=== PATIENT | male | born 2000 | race Caucasian/White ===

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

== ENCOUNTER 2022-01-01 13:26 | Emergency (ER) | payer OTHER, SELFPAY ==
--- NOTE | ~2022-01-01 | XR_ITS ---
EXAMINATION: XR KNEE, RIGHT CLINICAL INFORMATION: Fall, pain COMPARISON: None TECHNIQUE: Four views of the right knee. FINDINGS: Negative for acute fracture or dislocation. Small effusion cannot be excluded. XR/XR knee RT 4V IMPRESSION: No acute fracture or dislocation. Small effusion cannot be excluded here.
[2022-01-01 13:41] VITALS: BP 111/69; PULSE 98; RESP 18; TEMP 37.3; O2SAT 97; BMI 20.5
--- NOTE | 2022-01-01 15:20 | ED_ITS ---
HPI - Extremity Injury (Lower) General Chief Complaint: Extremity Injury, Lower Stated Complaint: R knee pain Time Seen by Provider: 01/01/22 14:03 History of Present Illness HPI Narrative: Patient complains of right knee pain after an injury when he fell skateboarding and landed on his knee cap 2 days ago, after he fell on his knee cap the skateboard fell onto him hitting the outside of his right knee He denies any other injury He [facility] after the injury where they x-rayed it and said there was fluid on the knee but no evidence of any other injury He comes today as pain has not improve Related Data Allergies Allergy/AdvReac Type Severity Reaction Status Date / Time No Known Allergies Allergy Verified 07/02/20 21:55 Review of Systems Review of Systems: Positive for right knee pain Negatives no head injury no neck injury no headache no neck pain no loss of consciousness no back pain no numbness weakness or tingling no lacerations no other extremity injuries Yes all other systems are reviewed and are negative PMFSH Past Medical History Source: nursing notes reviewed Medical History ADHD Social History Social History Advance Directives: No Advance Directives Information Provided: No Physical Exam Vital Signs: Vital Signs: Last Vital Signs Temp 99.1 F 01/01/22 13:41 Pulse 98 01/01/22 13:41 Resp 18 01/01/22 13:41 BP 111/69 01/01/22 13:41 Pulse Ox 97 01/01/22 13:41 O2 Del Method 01/01/22 13:41 BMI result Body Mass Index 20.5 General appearance no acute distress Head is normocephalic atraumatic Neck is supple nontender The back full range of motion nontender Chest wall nontender Abdomen soft nontender Extremities the right knee extends to 180 he can do a straight leg lift, there is no ligamentous laxity, there is no significant swelling no redness no warmth, there are some minor abrasions over the knee cap, patient can ambulate with a limp Other extremities normal Course Course Course Narrative: Right knee x-ray did not show any fracture and patient with likely sprain or bruise knee will follow with orthopedics Discharge Plan Discharge Clinical Impression: Contusion of knee, right, Right knee sprain Patient Disposition: Home, Self-Care Additional Instructions: No broken bone was seen on the x-ray, there was a question of fluid but they were unsure Hopefully the pain and discomfort are from bruising from getting hit with a skateboard and falling onto her knee cap, but there is no way to tell at this point if there was a twisting injury as well So if pain continues after for 5 days and you are not able to go back to regular activity call Orthopedics for an appointment and they will check for possible ligament or cartilage injury Return any time any concerns Referrals: Feliz Bocanegra MD [Physician] - (Right knee sprain) Stand Alone Forms: Work/School Release Interventions: ED Discharge Assessment Last Done: 01/01/22 15:32 Discharge Date/Time: 01/01/22 15:33
== END 2022-01-01 15:33 | disposition home or self-care (01) ==
PROVIDERS: Emergency Provider Emergency Medicine
DX: S80.01XA Contusion of right knee, initial encounter (principal); S83.91XA Sprain of unspecified site of right knee, initial encounter; V00.131A Fall from skateboard, initial encounter; Y93.51 Activity, roller skating (inline) and skateboarding; Y92.414 Local residential or business street as the place of occurrence of the external cause; Y99.9 Unspecified external cause status
CPT/HCPCS: 73564; 99283

== ENCOUNTER 2022-03-08 13:42 | Emergency (ER) | payer OTHER, SELFPAY ==
--- NOTE | ~2022-03-08 | XR_ITS ---
EXAMINATION: RIGHT SHOULDER AND RIGHT KNEE CLINICAL INFORMATION: Pain. COMPARISON: None TECHNIQUE: Right knee 4 views. Right shoulder 3 views. FINDINGS: Right shoulder: There is no visible acute fracture, dislocation or subluxation seen. The soft tissues are normal. Right knee: The tricompartment joint space is maintained normal. No acute fracture, dislocation or bony erosive changes seen. The soft tissues are normal. XR/XR shoulder RT min 2V IMPRESSION: Unremarkable right shoulder. Unremarkable right knee exam.
--- NOTE | ~2022-03-08 | XR_ITS ---
EXAMINATION: RIGHT SHOULDER AND RIGHT KNEE CLINICAL INFORMATION: Pain. COMPARISON: None TECHNIQUE: Right knee 4 views. Right shoulder 3 views. FINDINGS: Right shoulder: There is no visible acute fracture, dislocation or subluxation seen. The soft tissues are normal. Right knee: The tricompartment joint space is maintained normal. No acute fracture, dislocation or bony erosive changes seen. The soft tissues are normal. XR/XR knee RT 4V IMPRESSION: Unremarkable right shoulder. Unremarkable right knee exam.
[2022-03-08 13:59] VITALS: BP 119/68; PULSE 81; RESP 17; TEMP 36.6; O2SAT 98; BMI 20.3
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
== END 2022-03-08 16:08 | disposition home or self-care (01) ==
PROVIDERS: Emergency Provider Student in an Organized Health Care Education/Training Program
DX: M25.511 Pain in right shoulder (principal); M25.561 Pain in right knee
CPT/HCPCS: 73030; 73564; 99282; 99283

== ENCOUNTER 2022-04-12 13:11 | Emergency (ER) | payer OTHER, SELFPAY ==
[2022-04-12 13:18] VITALS: BP 110/75; PULSE 100; RESP 18; TEMP 37.1; O2SAT 98; BMI 20.3
--- NOTE | 2022-04-12 13:18 | ED_ITS ---
HPI - Nausea/Vomiting/Diarrhea General Chief complaint: Abdominal Pain Stated complaint: Food poisoning Related Data Allergies Allergy/AdvReac Type Severity Reaction Status Date / Time No Known Allergies Allergy Verified 04/12/22 13:20 [facility] Past Medical History Medical History ADHD Social History Social History Advance Directives: No Advance Directives Information Provided: No Physical Exam Vital Signs: Vital Signs: Last Vital Signs Temp 98.8 F 04/12/22 13:18 Pulse 100 04/12/22 13:18 Resp 18 04/12/22 13:18 BP 110/75 04/12/22 13:18 Pulse Ox 98 04/12/22 13:18 O2 Del Method 04/12/22 13:18 BMI result Body Mass Index 20.3 Course Course Course Narrative: This is an RME: Additional HPI, ROS, PE not included below will be deferred to primary provider. Patient is a 21-year-old male presents to the emergency department for evaluation of N/V/D. Yesterday at 20:00 reports he cooked a few hamburgers at home. Awoke today at 06:00 with nausea, vomiting x8, diarrhea x5, reportedly large volume with each episode, without blood, and diffuse ABD pain. Unable to tolerate PO intake. Denies fevers, chills, symptoms, sick contacts. Plan: Viral testing, Ondansetron sublingual, labs. placed back in waiting room pending bed availability 15:41 - WBC 22.6 with left shift, will obtain CT of the abdomen and pelvis Medications Administered Discontinued Medications Generic Name Dose Route Start Last Admin Trade Name Freq PRN Reason Stop Dose Admin Ondansetron HCl 4 mg 04/12/22 13:20 04/12/22 13:25 Ondansetron Odt 4 Mg Tab.Rapdis TRANSLINGU 04/12/22 13:21 4 mg ONCE ONE Administration Medical Decision Making Lab Data 04/12/22 13:51 04/12/22 13:51 Labs: Lab Results 04/12/22 04/12/22 Range/Units 13:51 13:51 WBC 22.6 H (4.8-10.8) X10*3/uL RBC 5.40 (4.60-5.80) X10*6/uL Hgb 17.1 (14.0-18.0) g/dl Hct 47.8 (42.0-52.0) % MCV 88.5 (80.0-98.0) fL MCH 31.7 (27.0-33.0) pg MCHC 35.8 (31.0-36.0) g/dl RDW 12.3 (11.0-16.0) % Plt Count 321 (160-400) X10*3/uL MPV 11.1 (9.4-12.4) fL Immature Gran % (Auto) 0.4 (0.0-0.4) % Neut % (Auto) 90.3 H (45-73) % Lymph % (Auto) 4.2 L (20-40) % [place] % (Auto) 4.5 (2-11) % Eos % (Auto) 0.2 (0-4) % Baso % (Auto) 0.4 (0-2) % Lymph # (Auto) 0.9 L (1.2-4.9) X10*3/uL [place] # (Auto) 1.0 (0.1-1.2) X10*3/uL Eos # (Auto) 0.1 (0.0-0.4) X10*3/uL Baso # (Auto) 0.1 (0.0-0.2) X10*3/uL Abs Immat Gran (auto) 0.09 H (0.00-0.03) X10*3/uL Absolute Neuts (auto) 20.4 H (2.0-8.3) x10*3/uL Absolute Nucleated RBC 0.000 (0.0-0.012) X10*3/uL Nucleated RBC % (auto) 0.0 (0.0-0.2) /100WBC Smear Tech's Comments VERIFIED Sodium 143 (135-145) mmol/L Potassium 4.6 (3.3-5.1) mmol/L Chloride 106 (96-108) mmol/L Carbon Dioxide 25 (22-29) mmol/L Anion Gap 17 (12-20) BUN 12 (9-16) mg/dL Creatinine 1.18 (0.5-1.4) mg/dL Estim Creat Clear Calc 83.9 Estimated GFR > 60 Random Glucose 108 (60-115) mg/dL Calcium 10.1 (8.4-10.2) mg/dL Total Bilirubin 2.1 H (0.0-1.0) mg/dL AST 22 (5-37) U/L ALT 24 (0-40) U/L Alkaline Phosphatase 54 (39-117) U/L Total Protein 7.5 (6.5-8.0) g/dL Albumin 5.2 H (3.5-5.0) g/dL Lipase 15 (8-78) U/L Discharge Plan Discharge Clinical Impression: Abdominal pain Patient Disposition: Elopement Interventions: ED Discharge Assessment Last Done: 04/12/22 19:39 Discharge Date/Time: 04/12/22 19:40
[2022-04-12] MEDS: Ondansetron ODT 4 MG TAB.RAPDIS TRANSLINGU (13:25)
[2022-04-12 13:59] LABS: Basophils Absolute Auto 0.1 X10*3/uL (0.0-0.2); Basophils Percent Auto 0.4 % (0-2); Eosinophils Absolute Auto 0.1 X10*3/uL (0.0-0.4); Eosinophils Percent Auto 0.2 % (0-4); Hematocrit 47.8 % (42.0-52.0); Hemoglobin 17.1 g/dl (14.0-18.0); Imm Gran Abs Auto 0.09 X10*3/uL (0.00-0.03); Imm Gran Pct Auto 0.4 % (0.0-0.4); Lymphocytes Absolute Auto 0.9 X10*3/uL (1.2-4.9); Lymphocytes Percent Auto 4.2 % (20-40); MANUAL DIFF FLAG SCAN; Mean Corpuscular HGB Conc 35.8 g/dl (31.0-36.0); Mean Corpuscular Hemoglobin 31.7 pg (27.0-33.0); Mean Corpuscular Volume 88.5 fL (80.0-98.0); Mean Platelet Volume 11.1 fL (9.4-12.4); Monocytes Percent Auto 4.5 % (2-11); Neutrophils Absolute Auto 20.4 x10*3/uL (2.0-8.3); Neutrophils Percent Auto 90.3 % (45-73); Platelet Count 321 X10*3/uL (160-400); Red Cell Distribution Width 12.3 % (11.0-16.0); SCAN SMEAR FLAG 1; White Blood Count 22.6 X10*3/uL (4.8-10.8)
[2022-04-12 14:13] LABS: Alanine Aminotransferase 24 U/L (0-40); Albumin Level 5.2 g/dL (3.5-5.0); Alkaline Phosphatase 54 U/L (39-117); Anion Gap 17 (12-20); Aspartate Amino Transferase 22 U/L (5-37); Bilirubin Total 2.1 mg/dL (0.0-1.0); Blood Urea Nitrogen 12 mg/dL (9-16); Calcium 10.1 mg/dL (8.4-10.2); Carbon Dioxide 25 mmol/L (22-29); Chloride 106 mmol/L (96-108); Creatinine Clr Calc Pharmacy 83.9; Estimated Glomerular Filt Rate > 60; Glucose Random 108 mg/dL (60-115); Lipase 15 U/L (8-78); Potassium 4.6 mmol/L (3.3-5.1); Sodium 143 mmol/L (135-145); Total Protein 7.5 g/dL (6.5-8.0)
[2022-04-12 14:20] LABS: SLIDE REVIEW VERIFIED
--- NOTE | 2022-04-12 19:39 | PC.NURSE ---
Not in [place] @ this time.
== END 2022-04-12 19:40 | disposition left against medical advice (07) ==
PROVIDERS: Nurse Practitioner Family; Emergency Provider Emergency Medicine
DX: R11.2 Nausea with vomiting, unspecified (principal); R10.30 Lower abdominal pain, unspecified; Z79.899 Other long term (current) drug therapy
CPT/HCPCS: 36415; 80053; 83690; 85025; 99282; 99283